=== PATIENT | male | born 1950 | race Caucasian/White ===

== ENCOUNTER → 2016-10-23 | Outpatient (CLI) | payer MEDICARE ==
[~2016-10-23] MED LIST: LANOXIN125 MCG PO; LIPITOR40 MG PO; METFORMIN HCL500 M1 PO; MULTIVITAMINS1 EAC3 PO; NEURONTIN600 MG PO; NEXIUM PO; NORCO 7.5-3251 EACH PO; SERTRALINE HCL50 M1 PO; WARFARIN SODIUM6 M1 PO; ZYRTEC10 M2 PO
[2016-10-23 13:53] LABS: HEMOGLOBIN 13.1 gm/dL (13.0-16.0); MEAN CELL VOLUME 81.7 FL (83-96); MEAN CORPUSCULAR HEMOGLOBIN 26.2 PG (28-34); MEAN CORPUSCULAR HGB CONC 32.1 g/dL (30-36); RED BLOOD COUNT 5.01 X10e (3.90-5.60); WHITE BLOOD COUNT 5.7 X10e3 (4.0-10.5)
== END | disposition home or self-care (01) ==
LOC: CLAB 13:16
PROVIDERS: Nurse Practitioner
DX: T84.53XA Infection and inflammatory reaction due to internal right knee prosthesis, initial encounter (principal)
CPT/HCPCS: 36415; 85027; 85652; 86140

== ENCOUNTER → 2017-01-05 | Outpatient (CLI) | payer MEDICARE ==
--- NOTE | ~2017-01-05 | CR63 ---
[facility] A Service of [facility] RADIOLOGY TEXT RESULTS PATIENT: XAVI SANTOS LOCATION: [facility] : 49 UNIT #: [id number] AGE: [address]: Frederick Limon MD SEX: M ORDER DR: [id number] [facility] [address] [place], [place] [address] [id number] O MR#: [id number] Acc #: [id number] NAME: XAVI SANTOS : 1950 SEX: M STUDY DATE/TIME: 01/05/2017 12:02 UNIT: [facility] ROOM: STUDY DESCRIPTION: CR Chest 2 View Attending Physician: Frederick Limon M.D. Referring Physician: Frederick Limon M.D. Ordering Physician: Frederick Limon M.D. Primary Care Physician: Blade Arechiga D.O. MEDICAL IMAGING REPORT This report is preliminary unless electronic signature is present EXAM Chest 01/05/2017. [facility] HISTORY 66-year-old male preop clearance for revision of right total knee arthroplasty. Failed components/loosening. COMPARISON: Chest none FINDINGS Two-view chest demonstrates normal cardiac size and configuration. Hilar structures and mediastinal contours are preserved. Lungs are expanded and clear bilaterally. Old healed upper rib fractures with prior fractures of right clavicle and scapula with malleable plates and screws in each. IMPRESSION No acute chest finding. Post-traumatic findings bilateral upper thorax with previous fixation of the right clavicular and right scapular fractures. Dictated by... Tomi Sheldon M.D. THIS IS AN ELECTRONICALLY VERIFIED REPORT Tomi Sheldon M.D. at 01/05/2017 3:22 PM LISA/suzanne TD: 01/05/2017 15:12 JOB #: [id number] MEDICAL IMAGING REPORT [facility] A Service of [facility] RADIOLOGY TEXT RESULTS PATIENT: XAVI SANTOS LOCATION: [facility] : 49 UNIT #: [id number] AGE: [address]: Frederick Limon MD SEX: M ORDER DR: Page 1 of 1 COPY
--- NOTE | ~2017-01-05 | CO ---
Unit #: [id number] #: [id number] Patient: XAVI SANTOS [id number] [address] [place], [place] [address] [id number] O MR#: [id number] NAME: XAVI SANTOS. ROOM: Age: 66 Sex: M Admission Date: 01/05/2017 : 1950 Attending Physician: Frederick Limon M.D. Primary Care Physician: Blade Arechiga D.O. Consultation Date: 01/05/2017 CONSULTATION REPORT REASON FOR CONSULTATION Preoperative medical evaluation prior to revision right total knee arthroplasty scheduled by Dr. Limon for 01/12/17. HISTORY OF PRESENT ILLNESS The patient is a 66-year-old male who presents to preprocedural screening for the reason as indicated above. His only complaint at the time of this interview today is soreness of the right knee joint. He denies upper chest, upper back, arm, neck or jaw pain or pressure. Denies shortness of air, dyspnea on exertion, although he uses a walker to assist with ambulation and is unable to climb a flight of stairs. He has a known history of sleep apnea and is compliant with CPAP. He has been evaluated by his apron man and given clearance for the upcoming surgery, as long as he brings his CPAP and uses it postoperatively when asleep. He denies lightheadedness, dizziness, pre-syncope, syncope and palpitations. He has a positive history of coronary artery disease, seven strokes in 1993 and history of atrial fibrillation, although the patient states he does not recall having history of atrial fibrillation. Please note the patient has short-term memory loss as a result of the multiple strokes. He denies history of renal failure. Denies history of congestive heart failure. He states that he was evaluated by his primary care physician, Dr. Arechiga, last week and that he was given preoperative medical clearance; however, I do not have that report available today. 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 His is present for the pre-op medical evaluation today. PAST MEDICAL HISTORY 1. Coronary artery disease. History of myocardial infarction in 1993. 2. Multiple CVAs in 1993 with associated short-term memory loss. 3. History of coma secondary to multiple strokes in 1993. 4. History of tracheostomy. 5. Type 2 diabetes mellitus, on oral medications. 6. COPD. 7. Obstructive sleep apnea, compliant with CPAP, given preoperative pulmonary clearance, as dictated above. 8. Anxiety/PTSD. 9. GERD. 10. History of MRSA in 2009. 11. History of neuropathy. 12. History of atrial fibrillation. The patient is on chronic Coumadin therapy and Lanoxin. 13. Allergic rhinitis. 14. Hyperlipidemia. Unit #: [id number] #: [id number] Patient: XAVI SANTOS 15. History of DVT. 16. Obesity, BMI 31. 17. History of alcoholism. Patient is a recovering alcoholic and has had no ETOH since 1983. 18. History of clavicle, rib and pelvic fractures. PAST SURGICAL HISTORY 1. LASIK in 2007. 2. Right total knee March 2015. 3. Repair of fracture of the femur. 4. Left hip fracture repair. 5. Right clavicle fracture. NOTE: Please note this patient denies personal or family history of complications to anesthesia. SOCIAL HISTORY [place] . . Denies tobacco use. Has not consumed alcohol since 1983. Denies illicit drug use. REVIEW OF SYSTEMS Patient was treated with antibiotics, which he finished last week, for a recent sinusitis, which has completely resolved. He has baseline short-term memory loss secondary to multiple strokes and history of coma. Right upper extremity weakness secondary to right arm wound sustained in [place]. The patient has full dentures. A 10-point review of systems was conducted and negative except as indicated under history of present illness above. PHYSICAL EXAMINATION GENERAL: A 64-year-old male, awake, alert, in no acute distress. Seated in wheelchair today. VITAL SIGNS: Temperature 98.8, heart rate 66, respiratory rate 20, blood pressure 113/65, oxygen saturation 95% on room air. HEENT: Atraumatic, normocephalic. Sclerae anicteric. No discharge from eyes, ears or nares. LYMPH: No preauricular, postauricular, tonsillar, submental, anterior or posterior cervical, supra- or infraclavicular adenopathy. ENDOCRINE: No thyromegaly, thyroid nodules or tenderness. CARDIOVASCULAR: S1, S2. Regular rate and rhythm without murmur or rub. No carotid bruits. GI: Bowel sounds positive x4. Soft, nontender, nondistended. EXTREMITIES: No edema, cyanosis or clubbing. MUSCULOSKELETAL: Strength 5/5 all extremities bilaterally to flexion and extension with mild right upper extremity weakness. NEUROLOGIC: Alert and oriented x3. Speech clear. Follows directions during examination. intermittently reminds patient of past medical history details. DIAGNOSTIC STUDIES LABORATORY: WBC 6.4, hemoglobin 12.9, hematocrit 39.2, platelets 293,000, sed rate 48. C-reactive protein 1. Sodium 140, potassium 3.9, chloride 101, CO2 29, glucose 149, BUN 11, creatinine 0.8, calcium 8.6, ALT 20, ALT 24, alkaline phosphatase 137, bili total 0.5, total protein 6.7, albumin 3.7. PT 21.1, INR 1.9. Blood type A+. Antibody screen negative. Urinalysis pending at this time. MRSA nasal swab pending at this time. IMAGING: Two-view chest x-ray report pending at this time. Unit #: [id number] #: [id number] Patient: XAVI SANTOS Bilateral lower extremity duplex venous Doppler report pending at this time. CARDIAC: Twelve-lead EKG - Sinus rhythm with PACs with aberrant conduction; otherwise, normal ECG. Confirmed report pending at this time. IMPRESSION 1. The patient is a 66-year-old male who presents to preprocedural screening for preoperative medical evaluation prior to revision right total knee arthroplasty as scheduled by Dr. Limon. The patient's [place] Revised Cardiac Risk Index is approximately equal to 6.6% for major cardiac risk. Given the patient's history of myocardial infarction, atrial fibrillation - on chronic anticoagulation therapy and multiple CVAs and the patient's likely deconditioned status secondary to decreased mobility, I have recommended preoperative cardiac clearance. I have explained to the patient that his risks include that for fatal or nonfatal myocardial infarction, cardiopulmonary arrest, arrhythmias and/or pulmonary edema, which would require critical care management above and beyond right knee postoperative medical management. The patient is concerned that the need to obtain preoperative cardiac clearance would delay his surgery. The patient states he has received a letter of preoperative cardiac clearance from his primary care physician, Dr. Arechiga. I have requested a copy of this from Dr. Limon's office. I have explained to the patient and his that the final decision regarding preoperative cardiac clearance would come from Dr. Limon, and they verbalize understanding of this information. 2. Obesity. BMI 31. Weight loss to optimum BMI suggested. 3. Recovering alcoholic. The patient has had no alcohol since 1983. 4. Coronary artery disease. History of myocardial infarction. At this time, will plan on continuation of the patient's current cardiac medications. Perioperative Coumadin management will be per order of Dr. Limon. Please refer to number 1 above. 5. History of multiple CVAs with resultant short-term memory loss. 6. History of coma secondary to strokes in 1993. 7. History of trach in 1993. 8. Type 2 diabetes mellitus, non-insulin dependent. Will monitor Accu-Cheks based on constant carbohydrate diet and ability to tolerate oral intake postoperatively. Will add low-dose sliding scale insulin protocol and hold metformin per hospital policy. 9. COPD. Stable. Will add inhaled bronchodilators and monitor for pulmonary complications postoperatively. 10. Obstructive sleep apnea. Patient has been advised to bring CPAP from home for use on home settings postoperatively. Patient will be placed on ALIX protocol, as well. 11. Anxiety/PTSD/history of depression. Will continue sertraline per home dose and monitor for psychiatric changes postoperatively. 12. GERD. Continue Nexium and elevate the head of the bed 30 to 40 degrees at all times. 13. History of MRSA in 2009. Patient will be placed in contact precautions based on hospital policy and pending results of MRSA nasal swab. 14. Neuropathy. Continue Neurontin at home dose unless contraindicated by ALIX protocol. 15. History of atrial fibrillation, on Coumadin and Lanoxin. The patient's INR is 1.9 today. He is to continue his current dose of Coumadin and Lanoxin. I have recommended preoperative cardiac Unit #: [id number] #: [id number] Patient: XAVI SANTOS clearance. I also recommend the patient be placed on a court monitor postoperatively. 16. Allergic rhinitis. Continue Zyrtec. 17. Hyperlipidemia. Continue Lipitor. 18. History of DVT. The patient's INR is 1.9 on Coumadin today. The patient is to continue current dose of Coumadin. Bilateral lower extremity duplex venous Dopplers have been ordered by Dr. Limon, and results are pending at this time. 19. Likely deconditioning secondary to history of decreased mobility. For this reason, I have recommended the patient have preoperative cardiac clearance; please refer to number one above. Thank you for allowing us to participate in the care of this patient. We will gladly follow the patient postop for medical management pending preoperative cardiac clearance based on final decision of Dr. Limon. Dictated by... Zoë Matthews A.P.R.N. for Pari Delacruz/jesus TD: 01/05/2017 12:03 JOB #: [id number] CONSULTATION REPORT Page 1 of 1 X Zoë Matthews APRN X CONSULTATION REPORT
--- NOTE | ~2017-01-05 | US84 ---
[id number] [facility]. [facility] [address] [place], [place] [address] [id number] O MR#: [id number] Acc #: [id number] NAME: XAVI SANTOS : 1950 SEX: M STUDY DATE/TIME: 01/05/2017 12:32 UNIT: [facility] ROOM: STUDY DESCRIPTION: US LE Veins Complete Alex Stdy Attending Physician: Frederick Limon M.D. Referring Physician: Frederick Limon M.D. Ordering Physician: Frederick Limon M.D. Primary Care Physician: Blade Arechiga D.O. MEDICAL IMAGING REPORT This report is preliminary unless electronic signature is present EXAM Bilateral lower extremity venous duplex 01/05/2017 HISTORY Bilateral leg pain 1.5 years with lower extremity edema. Evaluate for deep vein thrombosis. TECHNIQUE Venous ultrasound examination of both lower extremities was performed using grayscale, spectral Doppler and color flow Doppler imaging. FINDINGS The examination is negative. There is no evidence of deep venous thrombus from the groin to the lower calf bilaterally. Visualized greater saphenous veins are also patent. IMPRESSION Negative examination. No evidence of lower extremity deep venous thrombosis. Dictated by... Osmani Espino M.D. THIS IS AN ELECTRONICALLY VERIFIED REPORT Osmani Espino M.D. at 01/06/2017 8:11 AM Emely TD: 01/05/2017 16:24 JOB #: [id number] MEDICAL IMAGING REPORT Page 1 of 1 COPY
--- NOTE | ~2017-01-05 | EKG ---
PATIENT: XAVI SANTOS UNIT #: [id number] Ventricular Rate: 71 BPM Atrial Rate: 71 BPM P-R Interval: 202 ms QRS Duration: 76 ms Q-T Interval: 406 ms QTC Calculation(Bezet): 441 ms P Hamilton: 72 degrees Calculated R Hamilton: 53 degrees Calculated T Hamilton: 64 degrees Diagnosis Line: Sinus rhythm with Premature atrial complexes with Diagnosis Line: Aberrant conduction Diagnosis Line: Otherwise normal ECG Diagnosis Line: No previous ECGs available Diagnosis Line: Confirmed by LEONID BARRAZA MD ([id number]) on Diagnosis Line: 01/05/2017 10:10:24 PM INTERPRETING MD: FITO
[2017-01-05 09:27] LABS: HEMATOCRIT 39.2 % (38.0-50.0); HEMOGLOBIN 12.9 gm/dL (13.0-16.0); MEAN CELL VOLUME 81.7 FL (83-96); MEAN CORPUSCULAR HEMOGLOBIN 26.9 PG (28-34); MEAN CORPUSCULAR HGB CONC 32.9 g/dL (30-36); MEAN PLATELET VOLUME 7.3 FL (6.5-11.5); RED BLOOD COUNT 4.79 X10e (3.90-5.60); RED CELL DISTRIBUTION WIDTH 15.9 % (11.0-15.5); WHITE BLOOD COUNT 6.4 X10e3 (4.0-10.5)
[2017-01-05 09:55] LABS: INR 1.9; PROTHROMBIN TIME (PATIENT) 21.1 SECONDS (10.0-11.7)
[2017-01-05 10:07] LABS: ALBUMIN SERUM 3.7 g/dL (3.5-5.0); BILIRUBIN,TOTAL 0.5 mg/dL (0.2-2.0); BUN/CREATININE RATIO 13.75; CALCIUM SERUM 8.6 mg/dL (8.4-10.2); CREATININE SERUM 0.8 mg/dL (0.6-1.4); GLOM FILT RATE Estimated 92.5 mL/min (>60); POTASSIUM 3.9 mmol/L (3.5-5.1); PROTEIN TOTAL SERUM 6.7 g/dL (6.0-8.3)
[2017-01-05 12:08] LABS: URINE APPEARANCE CLEAR; URINE BILIRUBIN NEG (NEG); URINE BLOOD NEG (NEG); URINE COLOR YELLOW; URINE GLUCOSE NEG (NEG); URINE KETONE NEG (NEG); URINE LEUKOCYTE ESTERASE NEG (NEG); URINE NITRATE NEG (NEG); URINE PH 5.5 (5-8); URINE PROTEIN NEG (NEG); URINE SPECIFIC GRAVITY 1.008 (1.003-1.035); URINE UROBILINOGEN 0.2 MG/DL (NEG)
[2017-01-05 12:11] LABS: CULTURE INDICATED? NO; URINE SOURCE CLEAN CATCH
== END | disposition home or self-care (01) ==
LOC: CAMB 12-31 10:00
PROVIDERS: Orthopaedic Surgery
DX: Z01.818 Encounter for other preprocedural examination (principal); M79.605 Pain in left leg; M79.604 Pain in right leg; M79.89 Other specified soft tissue disorders; E66.9 Obesity, unspecified; I25.10 Atherosclerotic heart disease of native coronary artery without angina pectoris; E11.9 Type 2 diabetes mellitus without complications; J44.9 Chronic obstructive pulmonary disease, unspecified; K21.9 Gastro-esophageal reflux disease without esophagitis; Z68.31 Body mass index [BMI] 31.0-31.9, adult
CPT/HCPCS: 36415; 71020; 80053; 81003; 85027; 85610; 85652; 86140; 86850; 86900; 86901; 87070; 93005; 93970

== ENCOUNTER 2017-01-12 06:11 | Inpatient (IN) | payer MEDICARE ==
--- NOTE | ~2017-01-12 | OR ---
Unit #: [id number] #: [id number] Patient: XAVI SANTOS [id number] [facility]. [place] [id number] [facility] [place] [facility]. [place], [place] [address] [id number] I MR#: [id number] NAME: XAVI SANTOS. ROOM: 450 Date of Procedure: 01/12/2017 Admission Date: 01/12/2017 Surgeon: Frederick Limon M.D. : 1950 Attending Physician: Frederick Limon M.D. Primary Care Physician: Blade Arechiga D.O. OPERATIVE REPORT PREOPERATIVE DIAGNOSIS Painful right total knee with femoral loosening. POSTOPERATIVE DIAGNOSIS Painful right total knee with femoral loosening. PROCEDURE PERFORMED Revision of femoral component, right total knee. ASSISTANTS Marilyn Cortes and Jacob Blackmon. ANESTHESIA Adductor canal block plus general. ESTIMATED BLOOD LOSS About 250. INDICATIONS FOR PROCEDURE This is a 66-year-old gentleman who has had a hinged right total knee performed in the past for periprosthetic fracture. He has gone on to develop increasing pain in his right thigh with weightbearing. The pain limits his walking and standing, and his x-rays show loosening of the femoral component. His preop infection workup shows his CRP is mildly elevated. So, we attempted to aspirate his knee preop. No fluid was obtained. We will do a frozen section intraop. DESCRIPTION OF PROCEDURE The patient was brought to the holding room, given 2 g of Kefzol and 2 g of vancomycin. The right leg had an adductor canal block performed. He was then brought back to the operating room, given a general anesthetic. Tourniquet was placed around the right thigh. The right leg was prepped and draped in a sterile fashion. Tourniquet was inflated to 250. The patient's previous skin incision was opened. The subcutaneous dissected away and a medial arthrotomy performed. Clear fluid was encountered and this was cultured. The scar tissue from the medial and lateral gutters and the suprapatellar pouch was debrided. The patella was subluxed laterally. The knee was flexed. We were able to remove the locking pin from the hinge, and then the femur and tibia were disassociated. We removed the previous polyethylene, which was the narrowest one and this was 12 mm thick. After this was done, we inspected the femoral component. It was grossly loose. It would rotate in the canal, but when we tried to Unit #: [id number] #: [id number] Patient: XAVI SANTOS disimpact it, it would not come out of the femur. Eventually, the tapers came apart, and the femoral component and segment came off the stem. We then had to do an osteotomy of the femur in order to remove the stem, which was quite difficult to get out. Once this was out, we then used reverse curettes and obtained tissue from the canal and sent it for frozen section. We then debrided as much of the tissue as possible. Cerclage wires were placed around the femur. The frozen sections came back 1 to 2 polys per high-powered field. So, we elected to go ahead with re-implanting the femur. The canal was reamed up to a 20. We then used the conical reamer for the tantalum sleeve, which was a conical sleeve of size large. Once this was done, the patient then had the components opened. We used a 40 mm segment again with a segmental femoral component, which was 7 cm and we used as mentioned the 4-cm diaphyseal segment. Once the components were opened which were the exact same sizes as in the previous, they were assembled on the back table with the tantalum conical augment. We then mixed 2 packs of cement with 1 g of vancomycin in each package of cement, and the femoral component was impacted with about 5 to 7 degrees of external rotation. After this was done and the cement had hardened, there was some excess cement in the anterior aspect of the femur which came out where we did the osteotomy, so this was removed as completely as possible. The wires were tightened down around the conical augment and cut and bent. We then judged that the 12 insert was the appropriate thickness, so this was opened. New bushings were placed in femur. The knee was reduced, and the hinge pin was positioned, and then the locking pin was impacted. The tourniquet had been released after the cement had hardened. During the case when we were having such difficult time removing the femoral stem, we also released the tourniquet to cut down on tourniquet time. The wound was then irrigated out with Betadine and bacitracin. The rest of ropivacaine mixture was injected, and the wound was closed over a drain using 0 Ethibond in the arthrotomy, 0 and 2-0 Vicryl in the subcutaneous, and dayana in the skin. Sterile dressing applied, and the patient's general anesthetic was reversed. executive assistant to general counsel, Marilyn Cortes was present throughout the entire case. Dictated by... Pari Gay/tu TD: 01/13/2017 07:07 JOB #: [id number] OPERATIVE REPORT Page 1 of 1 X Frederick Limon MD X PROCEDURE OPERATIVE NOTE
--- NOTE | ~2017-01-12 | DS ---
Unit #: [id number] #: [id number] Patient: XAVI MCHUGH [id number] [facility]. [address] [address] [id number] I MR#: [id number] NAME: XAVI MCHUGH. ROOM: 450 Age: Sex: M Admission Date: 01/12/2017 : 1950 Discharge Date: Attending Physician: Frederick Limon M.D. Primary Care Physician: Blade Arechiga D.O. DISCHARGE SUMMARY ADMITTING DIAGNOSIS Loose femoral component, right knee. DISCHARGE DIAGNOSIS Loose femoral component, right knee. HOSPITAL COURSE On 01/12/2017, Mr. Mchugh underwent a right total knee revision for a loose femoral component. He tolerated the procedure well. He was transported to the fourth floor where he underwent physical therapy, medical management, and anticoagulation therapy. He is doing well and is ready to be discharged. DISPOSITION Stable at discharge. Discharged to [facility] on the third floor. MEDICATIONS ON DISCHARGE Include his routine home meds in addition to: 1. [place] 10/325. 2. Coumadin 6 mg. 3. Lovenox 40 mg subcu. daily until INR is greater than or equal to 2. FOLLOWUP AND INSTRUCTIONS 1. Mr. Mchugh is going to be discharged to rehab. 2. Patient is 50% weightbearing. 3. Physical therapy is to be done for active range of motion, strengthening, and progressive ambulation. 4. Patient will be on a walker for four weeks and a cane for an additional two weeks. 5. Skin dayana are to be discontinued two weeks postop. 6. Bilateral knee high JAISON hose are to be worn during the day and can be removed in the evening. 7. Patient can shower in one week and can drive after seen by Dr. Limon at the six-week postop appointment. 8. Followup appointment with Dr. Limon is in six weeks. Please call our office for that appointment date and time. Dictated by... Shen Sims. for Frederick Limon M.D. Aurelio Unit #: [id number] #: [id number] Patient: XAVI MCHUGH TD: 01/15/2017 09:59 JOB #: [id number] DISCHARGE SUMMARY Page 1 of 1 X Marilyn Cortes X DISCHARGE SUMMARY
[2017-01-12 06:51] LABS: PROTHROMBIN TIME (PATIENT) 10.7 SECONDS (10.0-11.7)
[2017-01-13 03:51] LABS: HEMATOCRIT 30.9 % (38.0-50.0); HEMOGLOBIN 9.9 gm/dL (13.0-16.0)
[2017-01-13 04:07] LABS: INR 1.2; PROTHROMBIN TIME (PATIENT) 13.1 SECONDS (10.0-11.7)
[2017-01-13 04:14] LABS: CALCIUM SERUM 7.5 mg/dL (8.4-10.2); CREATININE SERUM 0.5 mg/dL (0.6-1.4); DIGOXIN (LANOXIN) 0.3 ng/ml (1.0-2.0); GLOM FILT RATE Estimated 112.2 mL/min (>60); MAGNESIUM 1.6 mg/dL (1.6-3.0); POTASSIUM 3.9 mmol/L (3.5-5.1)
[2017-01-14 03:19] LABS: HEMATOCRIT 28.9 % (38.0-50.0); HEMOGLOBIN 9.6 gm/dL (13.0-16.0)
[2017-01-14 03:29] LABS: INR 1.3; PROTHROMBIN TIME (PATIENT) 13.6 SECONDS (10.0-11.7)
[2017-01-14 03:43] LABS: CALCIUM SERUM 8.2 mg/dL (8.4-10.2); CREATININE SERUM 0.5 mg/dL (0.6-1.4); GLOM FILT RATE Estimated 112.2 mL/min (>60); MAGNESIUM 2.3 mg/dL (1.6-3.0)
[2017-01-15 03:16] LABS: INR 1.4; PROTHROMBIN TIME (PATIENT) 14.8 SECONDS (10.0-11.7)
[2017-01-15 03:26] LABS: CALCIUM SERUM 8.2 mg/dL (8.4-10.2); CREATININE SERUM 0.6 mg/dL (0.6-1.4); GLOM FILT RATE Estimated 104.1 mL/min (>60); POTASSIUM 3.4 mmol/L (3.5-5.1)
== END 2017-01-15 23:08 | DRG 468 ==
LOC: CSUR 06:11 → CPACUOF 08:00 → CSUR 09:00 → CPACUOF 10:06 → C4B 10:06 → CSUR 11:00 → CPACUOF 14:42 → C4B 14:42
PROVIDERS: Nurse Practitioner; Orthopaedic Surgery
PROC: 0SRT0J9 Replacement of Right Knee Joint, Femoral Surface with Synthetic Substitute, Cemented, Open Approach (ICD-10-PCS; 2017-01-12)
PROC: 0QBB0ZZ Excision of Right Lower Femur, Open Approach (ICD-10-PCS; 2017-01-12)
PROC: 0QHB04Z Insertion of Internal Fixation Device into Right Lower Femur, Open Approach (ICD-10-PCS; 2017-01-12)
PROC: 0SPT0JZ Removal of Synthetic Substitute from Right Knee Joint, Femoral Surface, Open Approach (ICD-10-PCS; principal; 2017-01-12 09:00)
DX: T84.032A Mechanical loosening of internal right knee prosthetic joint, initial encounter (principal); T84.84XA Pain due to internal orthopedic prosthetic devices, implants and grafts, initial encounter; E11.9 Type 2 diabetes mellitus without complications; K21.9 Gastro-esophageal reflux disease without esophagitis; E66.9 Obesity, unspecified; Z68.31 Body mass index [BMI] 31.0-31.9, adult; I25.10 Atherosclerotic heart disease of native coronary artery without angina pectoris; I25.2 Old myocardial infarction; F41.9 Anxiety disorder, unspecified; Z86.010 Personal history of colon polyps
CPT/HCPCS: 80048; 80162; 82947; 83735; 85014; 85018; 85610; 87070; 87075; 87205; 88305; 88311; 88331; 94640; 94760; 94761; 97110; 97116; 97163; 97166; 97530; 97535; C1713; C1776; G8978-GP; G8979-GP; G8980-GP; G8987-GO; G8988-GO; J0131; J0171; J0690; J0735; J1100; J1650; J1815; J1885; J2250; J2270; J2405; J2795; J3010; J3370; J3475